=== PATIENT | male | born 1990 | race Caucasian/White ===

== ENCOUNTER 2018-09-22 10:03 | Emergency (ER) | payer SELFPAY ==
[~2018-09-22] VITALS: Ht 162.6 cm; Wt 57.6 kg
[2018-09-22 10:05] VITALS: BP_SYST 130
[2018-09-22] MEDS ORDERED: ACETAMINOPHEN 325 MG TABLET PO ONE (10:30)
[2018-09-22] MEDS ORDERED: cefTRIAXone 1 GM VIAL IM ONE (10:30)
[2018-09-22] MEDS ORDERED: BACITRACIN ZINC 15 GM TOPICAL OINTMENT TP ONE (10:30)
[2018-09-22] MEDS ORDERED: BACITRACIN 1 GM OINT TP ONE (10:44)
[2018-09-22] MEDS ORDERED: LIDOCAINE 1%, 20 ML MDV 20 ML ONE (10:45)
[2018-09-22 11:15] VITALS: BP_SYST 126
== END 2018-09-22 11:15 ==
LOC: SED 10:03
DX: S81.812A Laceration without foreign body, left lower leg, initial encounter (principal); R03.0 Elevated blood-pressure reading, without diagnosis of hypertension; W20.8XXA Other cause of strike by thrown, projected or falling object, initial encounter; Y93.89 Activity, other specified; Y92.89 Other specified places as the place of occurrence of the external cause; Y99.8 Other external cause status
CPT/HCPCS: 96372; 99283; J0696; J2001